=== PATIENT | male | born 1985 | race Caucasian/White ===

== ENCOUNTER 2019-11-14 07:26 | Inpatient (IN) | payer SELFPAY ==
[2019-11-14] VITALS (23 sets, daily range): BP systolic 102–184; BP diastolic 54–95
[~2019-11-14] VITALS: Ht 175.3 cm; Wt 81.1 kg
[2019-11-14 07:49] LABS: BASOPHILS % (AUTO) 0.3 % (0.0-5.0); EOSINOPHILS % (AUTO) 0.1 % (0.0-8.0); HEMATOCRIT 44.3 % (42-54); LYMPHOCYTES % (AUTO) 9.6 % (21.0-51.0); MEAN CORPUSCULAR HEMOGLOBIN 30.8 pg (27.0-33.0); MEAN CORPUSCULAR HGB CONC 34.5 g/dL (32.0-36.0); MEAN CORPUSCULAR VOLUME 89.1 fL (79-99); MONOCYTES % (AUTO) 8.5 % (3.0-13.0); NEUTROPHILS % (AUTO) 81.1 % (40.0-77.0); PLATELET COUNT (AUTO) 249 K/uL (130-400); RED BLOOD CELL COUNT(AUTO) 4.97 MIL/uL (4.50-6.20); RED CELL DISTRIBUTION WIDTH 11.4 % (11.0-15.5); WHITE BLOOD COUNT (AUTO) 21.1 K/uL (4.8-10.8)
[2019-11-14 08:00] LABS: CREATININE 1.3 mg/dL (0.5-1.5); POTASSIUM 3.8 mmol/L (3.5-5.1)
[2019-11-14 08:06] LABS: BILIRUBIN,TOTAL 1.1 mg/dL (0.2-1.0); TOTAL PROTEIN, SERUM 7.5 g/dL (6.0-8.3)
[2019-11-14] MEDS ORDERED: ONDANSETRON HCL 4 MG/2 ML VIAL ONE ×2 (08:14→14:30)
[2019-11-14] MEDS ORDERED: MORPHINE SULFATE 4 MG/1ML SYG ONE (08:14)
[2019-11-14] MEDS ORDERED: SODIUM CHLORIDE 0.9% 1000ML 1,000 ML IV ONE (08:14)
[2019-11-14 08:39] LABS: APPEARANCE,URINE Clear (CLEAR); BILIRUBIN,URINE Negative (NEGATIVE); COLOR,URINE Yellow (YELLOW); GLUCOSE, URINE (UA) Negative (NEGATIVE); KETONES,URINE Negative (NEGATIVE); LEUKOCYTE ESTERASE ,URINE Negative (NEGATIVE); NITRATE,URINE Negative (NEGATIVE); OCCULT BLOOD,URINE Negative (NEGATIVE); PH,URINE 6.5 (5.0-8.0); PROTEIN,URINE Negative (NEGATIVE); UROBILINOGEN,URINE 0.2 mg/dL (0.2-1.0)
[2019-11-14 08:44] LABS: INR 0.99 (0.85-1.15); PROTHROMBIN TIME 10.4 SEC (9.6-11.6)
[2019-11-14] MEDS ORDERED: IOHEXOL-350 75 ML VIAL IV ONE (09:14)
[2019-11-14] MEDS ORDERED: ZOSYN 3.375GM+NS 50ML 50 ML IV ONE (09:34)
[2019-11-14] MEDS ORDERED: ONDANSETRON HCL 4 MG/2 ML VIAL IVP PRN (11:00)
[2019-11-14] MEDS: LACTATED RINGERS 1000ML 1,000 ML IV SCH ×2 (11:00→20:41)
[2019-11-14] MEDS ORDERED: MORPHINE SULFATE 4 MG/1ML SYG IVP PRN (11:00)
[2019-11-14] MEDS ORDERED: BUPIVACAINE/PF 0.5% 30ML VIAL ONE ×2 (14:20→14:26)
[2019-11-14] MEDS ORDERED: LIDOCAINE PF 2% 5ML ABBOJECT ONE (14:26)
[2019-11-14] MEDS ORDERED: PROPOFOL 10 MG/ML 20ML VIAL IV ONE (14:26)
[2019-11-14] MEDS ORDERED: MIDAZOLAM HCL 1 MG/ML 2ML VIAL ONE ×2 (14:26→15:36)
[2019-11-14] MEDS ORDERED: FENTANYL CITRATE PF 50 MCG/1 ML 2ML VIAL ONE (14:26)
[2019-11-14] MEDS ORDERED: ROCURONIUM 10MG/1ML SYR 10 MG/ML ML ONE (14:29)
[2019-11-14] MEDS ORDERED: SUCCINYLCHOLINE 200MG/10ML SYR ONE (14:29)
[2019-11-14] MEDS ORDERED: HYDROCODONE/ACETAMINOPHEN 5/325 MG TAB PO PRN (14:30)
[2019-11-14] MEDS ORDERED: GLYCOPYRROLATE 1 MG/5 ML SYRINGE ONE (14:30)
[2019-11-14] MEDS ORDERED: NEOSTIGMINE 5MG/5ML SYR IV ONE (14:30)
[2019-11-14] MEDS ORDERED: DEXAMETHASONE SOD PHOSPHATE 4 MG/ML 1ML VIAL ONE (14:30)
[2019-11-14] MEDS ORDERED: ACETAMINOPHEN 325 MG TAB PO PRN (14:30)
[2019-11-14] MEDS ORDERED: METRONIDAZOLE 500MG/100ML BAG 100 ML ONE (15:10)
[2019-11-14] MEDS: METRONIDAZOLE 500MG/100ML BAG 100 ML IVPB SCH ×3 (15:15→19:45)
[2019-11-14] MEDS ORDERED: KETOROLAC TROMETHAMINE 30MG/ML ONE (15:18)
[2019-11-14] MEDS ORDERED: MEPERIDINE-PF 25 MG/ML SYG ONE (15:49)
[2019-11-14] MEDS: ZOSYN 3.375GM+NS 50ML 50 ML IV SCH (17:06)
[2019-11-14] MEDS: MORPHINE SULFATE 2 MG/ML 1ML SYG IV PRN ×3 (17:07→23:16)
[2019-11-14] MEDS: ONDANSETRON HCL 4 MG/2 ML VIAL IVP PRN (17:07)
[2019-11-14] MEDS: D5W-1/2 NS/20MEQ KCL 1,000 ML IV SCH (17:07)
[2019-11-14] MEDS: FAMOTIDINE/PF 20 MG/2 ML VIAL IV SCH (20:12)
[2019-11-15] MEDS: ZOSYN 3.375GM+NS 50ML 50 ML IV SCH ×3 (01:42→15:59)
[2019-11-15] MEDS: MORPHINE SULFATE 2 MG/ML 1ML SYG IV PRN ×3 (02:45→09:21)
[2019-11-15 03:55] VITALS: BP 131/74
[2019-11-15] MEDS: D5W-1/2 NS/20MEQ KCL 1,000 ML IV SCH ×2 (05:45→15:59)
[2019-11-15] MEDS: LACTATED RINGERS 1000ML 1,000 ML IV SCH ×2 (07:00→15:55)
[2019-11-15 07:57] VITALS: BP 146/82
[2019-11-15] MEDS: FAMOTIDINE/PF 20 MG/2 ML VIAL IV SCH ×2 (09:21→20:51)
[2019-11-15] MEDS: ONDANSETRON HCL 4 MG/2 ML VIAL IVP PRN (09:21)
[2019-11-15 11:42] VITALS: BP 139/82
[2019-11-15] MEDS: KETOROLAC TROMETHAMINE 30MG/ML IV PRN ×2 (12:24→18:44)
[2019-11-15 15:49] VITALS: BP 132/81
[2019-11-15] MEDS ORDERED: SODIUM CHLORIDE 0.9% 500ML 500 ML IV ONE (18:31)
[2019-11-15 19:00] VITALS: BP 127/85
--- NOTE | 2019-11-15 20:15 | NUR ---
DISCHARGE INSTRUCTIONS GIVEN, REMOVED 22GA IV TO RAC, V/S STABLE, HERE TO TAKE PATIENT HOME. NO ACUTE DISTRESS NOTED, VOICES NO DISCOMFORT.
[2019-11-15 21:05] VITALS: BP 119/77
== END 2019-11-15 21:12 | disposition home or self-care (01) | DRG 340 ==
LOC: EDH 07:26 → EDHIP 07:27 → 3BH 13:21
PROVIDERS: ADMIT Specialist; ATTEND Specialist
PROC: 0DTJ4ZZ Resection of Appendix, Percutaneous Endoscopic Approach (ICD-10-PCS; principal; 2019-11-14 14:30)
DX: K35.32 Acute appendicitis with perforation, localized peritonitis, and gangrene, without abscess (principal)
CPT/HCPCS: 36415; 74177; 80053; 81003; 83605; 83690; 85025; 85610; 85730; 87040; G0378; J0330; J1100; J1885; J2001; J2175; J2250; J2270; J2405; J2543; J2704; J2710; J3010; J3480; J3490; J7030; J7040; J7120; Q9967